=== PATIENT | male | born 1970 | race Caucasian/White ===

== ENCOUNTER 2018-08-25 21:52 | Emergency (ER) | payer MEDICAID ==
[2018-08-25] MEDS ORDERED: ASPIRIN 81 MG CHEWABLE TABLET PO ONE (22:03)
--- NOTE | 2018-08-25 22:07 | Emergency Department Record ---
History of Present Illness - General Chief Complaint: Chest Pain Stated Complaint: DIFFICULTY BREATHING/CHEST PAIN Time Seen by Provider: 08/25/18 22:03 Source: Patient Mode of Arrival: Wheelchair Limitations: No limitations - History of Present Illness Initial Comments: 48 yo male presents to ED for evaluation of chest discomfort and difficulty in breathing symptoms that began 20-30 minutes ago. Patient denies previous cardiac history, but does report that his father underwent triple-bypass surgery in his 40's, has history of HTN currently. Patient denies fevers, chills, or recent illness. Patient denies cough symptoms. MD Complaint: Chest pain Onset/Timin -: Minutes(s) Onset: Other (getting ready for work) Pain Location: Substernal Pain Radiation: None Severity: Moderate Severity scale (1-10): 4 Quality: Dull, Heaviness Consistency: Constant Improves With: Nothing Worsens With: Nothing Treatments Prior to Arrival: None - Related Data Home Medications Medication Instructions Recorded Confirmed Last Taken Amlodipine Besylate [Norvasc] 10 mg PO DAILY 08/25/18 08/25/18 Unknown Furosemide [Lasix] 40 mg PO DAILY 08/25/18 08/25/18 Unknown Isosorbide Mononitrate [Imdur] 20 mg PO DAILY 08/25/18 08/25/18 Unknown Losartan Potassium 25 mg PO DAILY 08/25/18 08/25/18 Unknown Metoprolol Succinate [Toprol Xl] 25 mg PO DAILY 08/25/18 08/25/18 Unknown Allergies Allergy/AdvReac Type Severity Reaction Status Date / Time erythromycin base Allergy HIVES Verified 08/25/18 21:56 Tetracyclines Allergy HIVES Verified 08/25/18 21:56 Review of Systems Constitutional: Denies: Chills, Fever, Malaise, Night sweats Eyes: Denies: Eye discharge, Eye pain ENT: Denies: Congestion, Ear pain, Epistaxis Respiratory: Denies: Cough, Dyspnea Cardiovascular: Reports: Chest pain. Denies: Dyspnea on exertion, Edema Endocrine: Denies: Fatigue, Heat or cold intolerance Gastrointestinal: Denies: Abdominal pain, Nausea, Vomiting Genitourinary: Denies: Incontinence, Retention Musculoskeletal: Denies: Arthralgia, Back pain Skin: Denies: Bruising, Change in color Neurological: Denies: Abnormal gait, Confusion, Headache, Seizure Psychiatric: Denies: Anxiety Hematological/Lymphatic: Denies: Anemia, Blood Clots Physical Exam - General General Appearance: Alert, Oriented x3, Cooperative, Moderate distress Limitations: No limitations - Head Head exam: Atraumatic, Normocephalic, Normal inspection Head exam detail: negative: Abrasion, Contusion, Feliciano's sign, General tenderness, Hematoma, Laceration - Eye Eye exam: Normal appearance. negative: Conjunctival injection, Periorbital swelling, Periorbital tenderness, Scleral icterus - ENT Ear exam: negative: Auricular hematoma, Auricular trauma Nasal Exam: negative: Active bleeding, Discharge, Dried blood, Foreign body Mouth exam: negative: Drooling, Laceration, Muffled voice, Tongue elevation - Neck Neck exam: Normal inspection. negative: Meningismus, Tenderness - Respiratory Respiratory exam: Normal lung sounds bilaterally. negative: Rales, Respiratory distress, Rhonchi, Stridor - Cardiovascular Cardiovascular Exam: Regular rate, Normal rhythm, Normal heart sounds - GI/Abdominal GI/Abdominal exam: Soft. negative: Rebound, Rigid, Tenderness - Rectal Rectal exam: Deferred - exam: Deferred - Extremities Extremities exam: Normal inspection. negative: Calf tenderness, Pedal edema, Tenderness - Back Back exam: Denies: CVA tenderness (R), CVA tenderness (L) - Neurological Neurological exam: Alert, Normal gait, Oriented X3 - Psychiatric Psychiatric exam: Normal affect, Normal mood - Skin Skin exam: Normal color. negative: Abrasion Type of lesion: negative: abrasion Course Vital Signs 08/25/18 21:58 Temperature 97.5 F L Pulse Rate [ 71 Pulse Ox Probe] Respiratory 24 Rate Blood Pressure 143/69 [Right Arm] Pulse Ox 98 - Reevaluation(s) Reevaluation #1: 08/25/18 22:07 EKG: NSR 67 Normal axis, IVCD Nonspecific ST-T wave changes II, III, V4-V6. Reevaluation #2: 08/25/18 23:08 Laboratory studies were reviewed and are grossly unremarkable for an acute process. Patient reports that he is feeling significantly better following Nitro SL. Case was discussed with Dr. De Leon, will accept transfer for further cardiac etiology. Patient and his SO were updated on the plan of care for transfer at this time. Reevaluation #3: 08/25/18 23:36 CXR: Appears negative for an acute process. Medical Decision Making - Lab Data Result diagrams: 08/25/18 22:23 08/25/18 22:23 Disposition Disposition: Transfer Clinical Impression: ST segment changes on electrocardiogram Chest pain Qualifiers: Chest pain type: unspecified Qualified Code(s): R07.9 - Chest pain, unspecified Disposition: Acute Care Hospital Transfer Transfer To: [facility] Reason For Transfer: Cardiology evaluation Accepting Physician: Moises Time Discussed w/Accepting Physician: 22:59 Condition: (2) Stable Forms: Patient Portal Access Time of Disposition: 22:59 Quality - Quality Measures Quality Measures: N/A - Blood Pressure Screening Does Patient Have Any of the Following: Active Dx of HTN Blood Pressure Classification: Pre-Hypertensive BP Reading Systolic Measurement: 135 Diastolic Measurement: 73 Screening for High Blood Pressure: Patient Exclusion, Hx of HTN [[id number]]
[2018-08-25 22:30] LABS: BASO % 0.4 % (0-6); EOS % 1.7 % (0-6); HEMATOCRIT 45.8 % (42.0-52.0); HEMOGLOBIN 15.3 gm/dl (14.0-18.0); LYMPH % 17.6 % (16-45); MEAN CELL VOLUME 87.2 fl (81-97); MEAN CORPUSCULAR HEMOGLOBIN 29.1 pg (27-33); MEAN CORPUSCULAR HGB CONC 33.4 g/dl (32-36); MONO % 7.3 % (0-9); PLATELET COUNT 195 K/uL (130-400); RED BLOOD COUNT 5.25 M/uL (4.40-5.70); RED CELL DISTRIBUTION WIDTH 15.6 % (11.5-14.5); WHITE BLOOD COUNT W/O DIFF 7.5 K/uL (4.2-12.2)
[2018-08-25] MEDS: NITROGLYCERIN 0.4MG SL TABLET #25 BTL SL PRN ×3 (22:30→22:45)
[2018-08-25 22:38] LABS: BLOOD UREA NITROGEN 17 mg/dL (6-20); EST GLOMERULAR FILTRATION RATE > 60 mL/min; TOTAL PROTEIN 7.2 g/dL (6.6-8.7)
[2018-08-25 22:40] LABS: GLUCOSE,RANDOM 107 mg/dL (74-109)
[2018-08-25 22:43] LABS: ALB/GLOB RATIO 1.8 (1.1-1.8); ALBUMIN 4.6 g/dL (4.0-5.0); ALKALINE PHOSPHATASE 93 U/L (40-129); ALT/SGPT 26 U/L (<41); AST/SGOT 20 U/L (10.0-50.0)
--- NOTE | 2018-08-27 14:22 | RADIOLOGY REPORT ---
EXAM: PORTABLE CHEST HISTORY: DIFFICULTY IN BREATHING BEGINNING ONE HOUR AGO. CHEST DISCOMFORT. TECHNIQUE: A single mobile semi-erect view of the chest is obtained. Comparison: None. FINDINGS: The image is obtained with the patient in a lordotic position. The lung apices are not entirely included on the image. The heart is not enlarged. No pulmonary venous hypertension is seen. No confluent air space opacity is demonstrated. Minor linear scarring versus atelectasis is present in the lateral left lung base. There is deformity, possibly post surgical, of the left sixth rib. IMPRESSION: 1. NO CONVINCING RADIOGRAPHIC EVIDENCE OF ACUTE CARDIOPULMONARY DISEASE. 2. MINOR LINEAR SCARRING VERSUS ATELECTASIS IN THE LATERAL LEFT LUNG BASE. 3. 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 JOB NUMBER: [id number] MTDD
== END 2018-08-26 00:25 | disposition short-term general hospital (02) ==
LOC: ER 21:52
DX: R07.2 Precordial pain (principal); R94.31 Abnormal electrocardiogram [ECG] [EKG]; R06.00 Dyspnea, unspecified; I10 Essential (primary) hypertension
CPT/HCPCS: 71045; 80053; 84484; 85025; 93005; 93010; 99285